=== PATIENT | female | born 1945 | race Two or more races ===

== ENCOUNTER 2017-12-31 08:39 | Outpatient (CLI) | payer OTHER | END 2017-12-31 08:52 | disposition home or self-care (01) | LOC: NUCLEAR 08:39 | DX: I49.3 Ventricular premature depolarization (principal); R00.2 Palpitations; E03.8 Other specified hypothyroidism ==

== ENCOUNTER → 2018-05-23 | Outpatient (CLI) | payer OTHER | END | disposition home or self-care (01) | LOC: NUCLEAR 10:13 | DX: R00.2 Palpitations (principal); E03.9 Hypothyroidism, unspecified ==

== ENCOUNTER 2022-06-19 07:36 | Outpatient (CLI) | payer OTHER | END 2022-06-19 08:09 | disposition home or self-care (01) | LOC: NUCLEAR 07:36 | PROVIDERS: ATTEND Internal Medicine Gastroenterology | DX: R09.89 Other specified symptoms and signs involving the circulatory and respiratory systems (principal) ==